=== PATIENT | female | born 1990 | race Caucasian/White ===

== ENCOUNTER 2018-05-16 23:21 | Observation (INO) | payer OTHER ==
[~2018-05-16] VITALS: Ht 152.4 cm; Wt 66.7 kg
[2018-05-16] MEDS ORDERED: PREN1TAB78 MT (23:24)
[2018-05-16] MEDS: LACTATED RINGERS 1,000 ML IV SCH (23:44)
[2018-05-17 01:12] LABS: CLARITY URINE CLEAR (CLEAR); COLOR URINE YELLOW (YELLOW); KETONES URINE TRACE (NEGATIVE); LEUKOCYTE ESTERASE URINE NEGATIVE (NEGATIVE); NITRITE URINE NEGATIVE (NEGATIVE); OCCULT BLOOD URINE 2+ (NEGATIVE); PROTEIN URINE TRACE (NEGATIVE); SPECIFIC GRAVITY URINE 1.014 (1.005-1.030); UROBILINOGEN URINE 0.2 E.U./dL (0.2-1.0)
[2018-05-17] MEDS ORDERED: TERBUTALINE SULFATE 1MG/ML VIAL SUBCUT PRN (02:45)
[2018-05-17] MEDS ORDERED: CEFAZOLIN 2,000 MG in DEXT 5% WATER 100 ML IV SCH (02:45)
[2018-05-17] MEDS: LACTATED RINGERS 1,000 ML IV SCH (02:48)
[2018-05-17] MEDS ORDERED: BETAMETHASONE ACET/BETAMET 30 MG/5 ML VIAL IM SCH (04:00)
== END 2018-05-17 06:30 | disposition home or self-care (01) ==
LOC: L&D 23:21
PROVIDERS: ADMIT Obstetrics & Gynecology; ATTEND Obstetrics & Gynecology
DX: O26.893 Other specified pregnancy related conditions, third trimester (principal); R10.9 Unspecified abdominal pain; O62.9 Abnormality of forces of labor, unspecified; Z3A.30 30 weeks gestation of pregnancy
CPT/HCPCS: 76805; 76817; 76818; 81003; 96361; 96365; 96372; G0378; J0690; J0702; J3105; J7120; 96360; J7060